=== PATIENT | female | born 1980 ===

== ENCOUNTER 2025-03-22 21:12 | Outpatient (BNV) | payer MEDICARE, MEDICAID, SELFPAY | END 2025-03-23 11:50 | PROVIDERS: Admitting Provider Psychiatry & Neurology Psychiatry; Visit Provider Radiology Diagnostic Radiology | DX: M51.369 Other intervertebral disc degeneration, lumbar region without mention of lumbar back pain or lower extremity pain (principal); S59.902A Unspecified injury of left elbow, initial encounter; M77.32 Calcaneal spur, left foot | CPT/HCPCS: 72100; 73070; 73620 ==

== ENCOUNTER 2025-03-22 21:12 | Inpatient (IN) | payer MEDICARE, MEDICAID, SELFPAY ==
--- NOTE | ~2025-03-22 | XR_ITS ---
EXAMINATION: XR ELBOW 1-2 VIEWS LEFT HISTORY: Trauma COMPARISON: There are no prior studies available for comparison. FINDINGS: AP and lateral views of the left elbow are submitted. Osseous mineralization is normal. There is no fracture or dislocation. A curvilinear calcification adjacent to the lateral epicondyle of the humerus may be ligamentous in nature.. The joint spaces are preserved. The soft tissues are unremarkable. There is no joint effusion. XR/XR elbow LT 2V IMPRESSION: Possible ligamentous calcification at the lateral aspect of the elbow. No evidence of fracture. Electronically signed by: Bro Beach MD 03/23/2025 03:06 PM EDT
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
--- NOTE | ~2025-03-22 | XR_ITS ---
EXAMINATION: XR LUMBAR SPINE 2-3 VIEWS HISTORY: Trauma COMPARISON: There are no prior studies for comparison. FINDINGS: AP, lateral, and coned down views of the lumbar spine are submitted. Osseous mineralization is normal. Five nonrib-bearing lumbar vertebral bodies are identified, maintaining normal height and alignment without evidence of fracture or spondylolisthesis. There is mild degenerative disc disease with disc space narrowing and osteophyte formation. 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 The visualized paraspinal soft tissues are unremarkable. XR/XR lumbar spine 2-3V IMPRESSION: Degenerative changes as described. Electronically signed by: Bro Beach MD 03/23/2025 03:09 PM EDT
--- OUTSIDE RECORDS SUMMARY | 2025-03-22 21:18 | XMS_ITS | Clinical Summary ---
Author Organization [facility] [employer] Address [address] [place] [address] Care Team Providers Care Post Framer Name Role Phone Unavailable Primary Care Provider Unavailabl e Social History Tobacco Use Types Packs/Day Years Used Date Smoking Tobacco: Never Assessed Comments Unknown Sex and Gender Information Value Date Recorded Sex Assigned at Not on file Legal Sex Female 3:43 AM EDT Gender Identity Not on file Sexual Orientation Not on file Plan of Treatment Health Maintenance Due Date Last Done Comments Depression: Screening Annually using PHQ-2/9 in Adults 18 yrs or above (or HM Modifier)([facility]) 1998 Hepatitis C Virus Infection in Adolescents and Adults: Screening (or Modifier) ([facility]) 1998 [facility] Screening Reminder: Annually for all adults ([facility]) 1998 Tobacco Smoking Cessation: i n Adults excluding Women: Behavioral and Pharmacotherapy Interventions ([facility]) 1998 Cervical Cancer Screenin-65 yrs of age (or Modifier) 2001 Cervical Cancer Screening: Pap every 3 yrs pts age 21-65 2001 Cervical Cancer: Pap Screening with Modifier timing ([facility]) 2001 Cervical Cancer: hrHPV alone or with cotesting Pap for Pts 30-65yrs screening every 5yrs ([facility]) 2001 DTaP/Tdap/Td Vaccines ([facility]) (2 - Td or Tdap) 05/12/2023 05/12/2013, 03/31/2008 COVID-19 Vaccine Screening: Initial Series and Booster Status ([facility]) (2023- season) 2024 Flu Vaccination: Yearly for ages 18mos through 64 years (or Modifier)([facility]) 05/14/2025 07/24/2017, 09/12/2016, 07/05/2015, Additional history exists Zoster/Shingles Vaccine Series Screening: Adults aged 18+ yrs (or HM Modifiers)([facility]) (1 of 2) 2030 Pneumococcal Vaccination Screening: Pts 0-19 & 19-49 yrs of age ([facility]) Aged Out No longer eligible based on patient's age to complete this topic Medical Devices Not on file
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
[2025-03-22] MEDS: diazePAM 10 MG/2 ML CARTRIDGE IM (21:55)
[2025-03-22] MEDS: OLANZapine 10 MG VIAL IM (21:56)
[2025-03-22] MEDS: diphenhydrAMINE HCL 50 MG/ML VIAL IM (22:17)
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
--- NOTE | 2025-03-22 22:46 | HO.BHRESTREX ---
Behavioral Restraint Exam Behavioral Health Restraint Exam Type of Restraint: Physical Hold and Medication Reason for Restraint: Substantial Risk of Harm to Others Medical Concerns for Restraint: No medical concerns, pt w/o acute inj / no noted resp/VS abnormalities
[2025-03-22 23:26] VITALS: BP 157/99; PULSE 101; RESP 18; TEMP 36.6; O2SAT 99
[2025-03-23] MEDS: traMADoL HCL 50 MG TABLET PO (05:00)
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
[2025-03-23] MEDS: LORazepam 1 MG TABLET PO (08:17)
[2025-03-23] MEDS: Multivitamin TABLET 1 TAB PO (09:41)
[2025-03-23] MEDS: Omeprazole 20 MG CAPSULE.DR PO (09:41)
[2025-03-23] MEDS: Cholecalciferol (Vitamin D3) 10 MCG TABLET 20 MCG PO (09:41)
[2025-03-23] MEDS: ARIPiprazole 30 MG TABLET PO (09:41)
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
[2025-03-23 10:26] VITALS: BP 136/92
[2025-03-23] MEDS: Losartan Potassium 50 MG TABLET PO (10:26)
[2025-03-23] MEDS: Topiramate 25 MG TABLET 150 MG PO ×2 (10:26→21:28)
[2025-03-23] MEDS: Atorvastatin Calcium 40 MG TABLET PO (10:26)
[2025-03-23] MEDS: traMADoL HCL 50 MG TABLET 100 MG PO ×2 (10:26→18:55)
[2025-03-23] MEDS: metFORMIN HCl 500 MG TABLET PO ×2 (10:26→17:03)
[2025-03-23] MEDS: buPROPion HCl XL 300 MG TAB.ER.24H PO (10:26)
[2025-03-23] MEDS: Albuterol Sulfate 90 MCG 8 GM INHALER 2 PUFF INHALE (10:36)
[2025-03-23] MEDS: predniSONE 20 MG TABLET PO ×2 (10:36→21:29)
[2025-03-23] MEDS: Fluticasone Propionate 100 MCG BLST.W.DEV 1 PUFF INHALE ×2 (10:37→21:33)
[2025-03-23 11:00] VITALS: PULSE 103; RESP 20; TEMP 36.6; O2SAT 99
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
[2025-03-23] MEDS: medroxyPROGESTERone Acetate 5 MG TABLET 10 MG PO (11:34)
[2025-03-23] MEDS: hydrOXYzine HCL 25 MG TABLET PO (13:26)
[2025-03-23] MEDS: Acetaminophen 325 MG TABLET 650 MG PO (13:50)
[2025-03-23] MEDS: clonazePAM 0.5 MG TABLET PO ×2 (14:00→21:29)
[2025-03-23] MEDS: Magnesium Oxide 400 MG TABLET PO (17:03)
[2025-03-23] MEDS: LORazepam 0.5 MG TABLET PO (17:03)
[2025-03-23] MEDS: LOXAPINE 50 MG 50 EACH PO (17:11)
[2025-03-23 20:00] VITALS: BP 140/79; PULSE 97; RESP 18; TEMP 36.9; O2SAT 95
[2025-03-23] MEDS: Montelukast Sodium 10 MG TABLET PO (21:29)
[2025-03-23] MEDS: LOXAPINE 50 MG 150 EACH PO (21:32)
[2025-03-23] MEDS: Milk of Magnesia 30 ML ORAL.SUSP PO (21:40)
[2025-03-24] MEDS: LORazepam 0.5 MG TABLET PO ×3 (01:04→16:13)
[2025-03-24] MEDS: Omeprazole 20 MG CAPSULE.DR PO (07:07)
[2025-03-24 07:53] VITALS: BP 132/82; PULSE 95; RESP 16; TEMP 36.7; O2SAT 99
[2025-03-24 08:03] LABS: MANUAL DIFF FLAG NO
[2025-03-24] MEDS: Cholecalciferol (Vitamin D3) 10 MCG TABLET 20 MCG PO (08:04)
[2025-03-24] MEDS: metFORMIN HCl 500 MG TABLET PO ×2 (08:04→16:13)
[2025-03-24] MEDS: Multivitamin TABLET 1 TAB PO (08:04)
[2025-03-24] MEDS: buPROPion HCl XL 300 MG TAB.ER.24H PO (08:04)
[2025-03-24] MEDS: Magnesium Oxide 400 MG TABLET PO ×2 (08:04→16:13)
[2025-03-24] MEDS: clonazePAM 0.5 MG TABLET PO ×3 (08:04→21:52)
[2025-03-24] MEDS: ARIPiprazole 30 MG TABLET PO (08:04)
[2025-03-24] MEDS: predniSONE 20 MG TABLET PO ×2 (08:05→21:52)
[2025-03-24] MEDS: medroxyPROGESTERone Acetate 5 MG TABLET 10 MG PO (08:05)
[2025-03-24] MEDS: traMADoL HCL 50 MG TABLET 100 MG PO ×2 (08:05→17:40)
[2025-03-24] MEDS: Topiramate 25 MG TABLET 150 MG PO ×2 (08:05→21:51)
[2025-03-24] MEDS: OLANZapine ODT 10 MG TAB.RAPDIS TRANSLINGU (08:06)
[2025-03-24] MEDS: Losartan Potassium 50 MG TABLET PO (08:06)
[2025-03-24] MEDS: Atorvastatin Calcium 40 MG TABLET PO (08:06)
[2025-03-24 08:10] LABS: Basophils Percent Auto 0.3 % (0-2); Eosinophils Percent Auto 0.1 % (0-4); Hematocrit 41.2 % (37.0-47.0); Hemoglobin 13.8 g/dl (12.0-16.0); Imm Gran Abs Auto 0.06 X10*3/uL (0.00-0.03); Imm Gran Pct Auto 0.5 % (0.0-0.4); Lymphocytes Absolute Auto 1.5 X10*3/uL (1.2-4.9); Lymphocytes Percent Auto 13.1 % (20-40); Mean Corpuscular HGB Conc 33.5 g/dl (31.0-35.0); Mean Corpuscular Hemoglobin 33.8 pg (27.0-33.0); Mean Platelet Volume 10.7 fL (9.4-12.3); Monocytes Absolute Auto 0.7 X10*3/uL (0.1-1.2); Monocytes Percent Auto 6.5 % (2-11); Neutrophils Absolute Auto 9.1 x10*3/uL (2.0-8.3); Neutrophils Percent Auto 79.5 % (45-73); Platelet Count 243 X10*3/uL (160-400); Red Blood Count 4.08 X10*6/uL (4.20-5.50); Red Cell Distribution Width 12.3 % (11.0-16.0); White Blood Count 11.5 X10*3/uL (4.8-10.8)
[2025-03-24] MEDS: Albuterol Sulfate 90 MCG 8 GM INHALER 2 PUFF INHALE ×2 (08:12→11:28)
[2025-03-24] MEDS: Fluticasone Propionate 100 MCG BLST.W.DEV 1 PUFF INHALE ×2 (08:12→21:52)
[2025-03-24] MEDS: LOXAPINE 50 MG 50 EACH PO ×2 (08:12→11:28)
[2025-03-24 08:22] LABS: Estimated Average Glucose 94 mg/dL; Hemoglobin A1C 108.7069 umol/L; Hemoglobin A1c % 4.9 % (<6.0); Total Hemoglobin (HGBA1C) 3583.5488 umol/L
[2025-03-24 08:23] LABS: Anion Gap 11 (12-20); Blood Urea Nitrogen 13 mg/dL (9-16); Calcium 9.9 mg/dL (8.4-10.2); Carbon Dioxide 24 mmol/L (22-29); Chloride 110 mmol/L (96-108); Creatinine Clr Calc Pharmacy 88.2; Estimated Glomerular Filt Rate > 60; Glucose Random 126 mg/dL (60-115); Magnesium 2.2 mg/dL (1.6-2.6); Potassium 4.3 mmol/L (3.3-5.1); Sodium 141 mmol/L (135-145)
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
[2025-03-24] MEDS: hydrOXYzine HCL 25 MG TABLET PO (11:28)
[2025-03-24] MEDS: Magnesium Hydrox/Alum Hydrox 30 ML ORAL.SUSP PO ×2 (19:13→23:20)
[2025-03-24 20:00] VITALS: BP 120/87; PULSE 102; TEMP 36.4; O2SAT 98
[2025-03-24] MEDS: LOXAPINE 50 MG 150 EACH PO (21:49)
[2025-03-24] MEDS: Montelukast Sodium 10 MG TABLET PO (21:52)
[2025-03-24] MEDS: Acetaminophen 325 MG TABLET 975 MG PO (21:58)
[2025-03-24] MEDS: Melatonin 3 MG TABLET 6 MG PO (21:59)
[2025-03-25] MEDS: LORazepam 0.5 MG TABLET PO ×2 (00:52→08:16)
[2025-03-25] MEDS: hydrOXYzine HCL 25 MG TABLET PO ×2 (00:52→07:13)
[2025-03-25] MEDS: traMADoL HCL 50 MG TABLET 100 MG PO (04:18)
[2025-03-25 07:00] VITALS: BMI 31.5
[2025-03-25 08:00] VITALS: BP 138/88; PULSE 99; TEMP 36.4; O2SAT 97
[2025-03-25] MEDS: Topiramate 25 MG TABLET 150 MG PO (08:14)
[2025-03-25] MEDS: Fluticasone Propionate 100 MCG BLST.W.DEV 1 PUFF INHALE (08:14)
[2025-03-25] MEDS: LOXAPINE 50 MG 50 EACH PO (08:14)
[2025-03-25] MEDS: Losartan Potassium 50 MG TABLET PO (08:14)
[2025-03-25] MEDS: medroxyPROGESTERone Acetate 5 MG TABLET 10 MG PO (08:14)
[2025-03-25] MEDS: predniSONE 20 MG TABLET PO (08:15)
[2025-03-25] MEDS: Omeprazole 20 MG CAPSULE.DR PO (08:15)
[2025-03-25] MEDS: metFORMIN HCl 500 MG TABLET PO (08:15)
[2025-03-25] MEDS: buPROPion HCl XL 300 MG TAB.ER.24H PO (08:15)
[2025-03-25] MEDS: Atorvastatin Calcium 40 MG TABLET PO (08:15)
[2025-03-25] MEDS: Cholecalciferol (Vitamin D3) 10 MCG TABLET 20 MCG PO (08:15)
[2025-03-25] MEDS: Magnesium Oxide 400 MG TABLET PO (08:16)
[2025-03-25] MEDS: Multivitamin TABLET 1 TAB PO (08:16)
[2025-03-25] MEDS: ARIPiprazole 30 MG TABLET PO (08:16)
[2025-03-25] MEDS: clonazePAM 0.5 MG TABLET PO (08:16)
[2025-03-25 08:41] LABS: Estimated Average Glucose 97 mg/dL; Hemoglobin A1C 99.6925 umol/L; Total Hemoglobin (HGBA1C) 3245.9945 umol/L
[2025-03-25 08:55] LABS: Alanine Aminotransferase 50 U/L (0-31); Albumin Level 4.6 g/dL (3.5-5.0); Alkaline Phosphatase 53 U/L (39-117); Anion Gap 11 (12-20); Aspartate Amino Transferase 36 U/L (5-31); Bilirubin Total 0.3 mg/dL (0.0-1.0); Blood Urea Nitrogen 16 mg/dL (9-16); Calcium 9.6 mg/dL (8.4-10.2); Carbon Dioxide 22 mmol/L (22-29); Chloride 110 mmol/L (96-108); Cholesterol 145 mg/dL (<200); Estimated Glomerular Filt Rate > 60; Glucose Random 138 mg/dL (60-115); HDL Cholesterol 47 mg/dL (>40); LDL Cholesterol Calculated 68 mg/dL (<100); Potassium 4.1 mmol/L (3.3-5.1); Sodium 139 mmol/L (135-145); Triglycerides 153 mg/dL (<150)
[2025-03-25 09:13] LABS: Thyroid Stimulating Hormone 1.12 uIU/mL (0.32-4.0)
[2025-03-25 09:23] LABS: Folate 10.9 ng/mL (> or = 4.0); Vitamin B12 643 pg/mL (200-900)
[2025-03-25] MEDS: clonazePAM 1 MG TABLET PO (10:35)
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
[2025-03-25] MEDS: Naloxone HCl Nasal TAKE HOME 4 MG SPRAY 8 MG NOSTRILALT (12:20)
== END 2025-03-25 13:21 | disposition home or self-care (01) | DRG 885 ==
PROVIDERS: Nurse Practitioner Family; Social Worker; Admitting Provider Psychiatry & Neurology Psychiatry; Visit Provider Psychiatry & Neurology Psychiatry
DX: F25.0 Schizoaffective disorder, bipolar type (principal); E11.9 Type 2 diabetes mellitus without complications; F43.10 Post-traumatic stress disorder, unspecified; F17.210 Nicotine dependence, cigarettes, uncomplicated; Z78.1 Physical restraint status; Z71.6 Tobacco abuse counseling; J45.20 Mild intermittent asthma, uncomplicated; G89.29 Other chronic pain; E78.5 Hyperlipidemia, unspecified; I10 Essential (primary) hypertension; Z79.52 Long term (current) use of systemic steroids; Z79.84 Long term (current) use of oral hypoglycemic drugs; Z79.899 Other long term (current) drug therapy
CPT/HCPCS: 36415; 72100; 73070; 73620; 80048; 80053; 80061; 82607; 82746; 83036; 83735; 84443; 85025; J1200; J2359; J3360

== ENCOUNTER → 2025-03-22 21:12 | Outpatient (BNV) | payer MEDICARE, MEDICAID, SELFPAY | PROVIDERS: Admitting Provider Psychiatry & Neurology Psychiatry; Visit Provider Nurse Practitioner Family | DX: E11.9 Type 2 diabetes mellitus without complications (principal) | CPT/HCPCS: 99222 ==

== ENCOUNTER → 2025-03-22 21:12 | Outpatient (BNV) | payer MEDICARE, MEDICAID, SELFPAY | PROVIDERS: Admitting Provider Psychiatry & Neurology Psychiatry; Visit Provider Psychiatry & Neurology Psychiatry | DX: F25.0 Schizoaffective disorder, bipolar type (principal); F43.11 Post-traumatic stress disorder, acute; E11.9 Type 2 diabetes mellitus without complications | CPT/HCPCS: 90792; 99499 ==